=== PATIENT | male | born 1975 | race Caucasian/White ===

== ENCOUNTER 2024-03-17 16:23 | Emergency (ER) | payer MEDICAID, MEDICARE ==
[~2024-03-17] VITALS: Ht 177.8 cm; Wt 85.0 kg
[2024-03-17 16:27] VITALS: O2SAT 98
[2024-03-17] MEDS: HYDROCODONE/ACETAMINOPHEN 5/325MG TABLET PO ONE (17:50)
[2024-03-17] MEDS ORDERED: ACET325T52 MT (18:26)
[2024-03-17] MEDS ORDERED: LIDO700A15 TP (19:00)
[2024-03-17 19:25] VITALS: BP 134/77; PULSE 80; RESP 18; TEMP 98.5
== END 2024-03-17 19:29 | disposition home or self-care (01) ==
LOC: ER 16:23
DX: R07.81 Pleurodynia (principal); V09.9XXA Pedestrian injured in unspecified transport accident, initial encounter; Y93.89 Activity, other specified; Y92.89 Other specified places as the place of occurrence of the external cause; Y99.8 Other external cause status
CPT/HCPCS: 71101; 93005; 99283